=== PATIENT | male | born 1945 | race Caucasian/White ===

== ENCOUNTER → 2016-04-29 | Outpatient (CLI) | payer OTHER | END | disposition home or self-care (01) | LOC: NUC 09:53 | DX: I42.8 Other cardiomyopathies (principal); I25.2 Old myocardial infarction; I10 Essential (primary) hypertension; E11.9 Type 2 diabetes mellitus without complications; F17.200 Nicotine dependence, unspecified, uncomplicated; Z95.5 Presence of coronary angioplasty implant and graft | CPT/HCPCS: 78472; A9512; A9560 ==

== ENCOUNTER → 2017-05-05 | Outpatient (CLI) | payer OTHER | END | disposition home or self-care (01) | LOC: NUC 10:54 | DX: Z01.810 Encounter for preprocedural cardiovascular examination (principal); I25.5 Ischemic cardiomyopathy; I49.9 Cardiac arrhythmia, unspecified; I25.2 Old myocardial infarction; Z87.891 Personal history of nicotine dependence; Z95.1 Presence of aortocoronary bypass graft | CPT/HCPCS: 78472; A9512; A9560 ==

== ENCOUNTER 2017-06-28 22:12 | Inpatient (IN) | payer OTHER ==
[~2017-06-28] VITALS: Ht 177.8 cm; Wt 143.0 kg
[2017-06-28 23:02] LABS: HEMATOCRIT 40.1 % (38.0-50.0); HEMOGLOBIN 13.4 G/DL (12.5-16.6); MCH 28.5 PG (29.0-34.0); MCHC 33.4 G/DL (30.0-36.0); MCV 85.3 FL (86-99); PLATELET COUNT 189 K/uL (156-360); RBC DIS.WIDTH-CV 12.5 % (11.8-14.6); RBC DIS.WIDTH-SD 38.7 % (39-53); WHITE BLOOD COUNT 16.3 K/uL (4.1-10.2)
[2017-06-28 23:12] LABS: ALBUMIN 3.3 g/dL (3.2-4.8); CHLORIDE 110 mEq/L (99-109); SODIUM 140 mEq/L (136-147)
[2017-06-28 23:14] LABS: GLUCOSE 161 mg/dL (70-99)
[2017-06-28 23:15] LABS: TOTAL PROTEIN 6.7 g/dL (6.4-8.3)
[2017-06-28 23:16] LABS: TOTAL BILIRUBIN 0.6 mg/dL (0.0-1.0)
[2017-06-28 23:18] LABS: ALKALINE PHOSPHATASE 84 IU/L (3-129); CREATININE 1.1 mg/dL (0.6-1.3); GFR ESTIMATE (CALCULATED) > 59 mL/min/ (58.99-99999)
[2017-06-28 23:19] LABS: UREA NITROGEN (BUN) 17 mg/dL (9-23)
[2017-06-28 23:20] LABS: AST (GOT) 22 IU/L (2-34)
[2017-06-28 23:21] LABS: ALT (GPT) 23 IU/L (3-49)
[2017-06-28 23:22] LABS: LIPASE 3 U/L (1.0-51.0)
[2017-06-28 23:24] LABS: TROP-I INTERPRETATION NEGATIVE
[2017-06-29] MEDS ORDERED: ENTRESTO 97 MG1 EACH PO (00:47)
[2017-06-29] MEDS ORDERED: FUROSEMIDE40 MG PO (00:50)
[2017-06-29] MEDS ORDERED: LOSARTAN POTASS25 MG PO (00:50)
[2017-06-29] MEDS ORDERED: CEPHALEXIN250 MG PO (00:51)
[2017-06-29] MEDS ORDERED: METFORMIN HCL500 MG PO (00:55)
[2017-06-29] MEDS ORDERED: APRESOLINE50 MG PO (00:56)
[2017-06-29] MEDS ORDERED: OXAYDO5 MG PO (01:01)
[2017-06-29] MEDS ORDERED: LO-DOSE ASPIRIN81 M2 PO (01:02)
[2017-06-29] MEDS ORDERED: ATORVASTATIN CA40 MG PO (01:03)
[2017-06-29] MEDS ORDERED: CARVEDILOL25 MG PO (01:04)
[2017-06-29] MEDS ORDERED: TYLENOL REGULA325 MG PO (01:05)
[2017-06-29] MEDS ORDERED: FLONASE16 G1 BOTH NARES (01:06)
[2017-06-29] MEDS ORDERED: HUMALOG MI100 UNIT/6 SC (01:12)
[2017-06-29 01:20] LABS: CARBON DIOXIDE (BICARBONATE) 18.5 MEQ/L (20-31)
[2017-06-29 01:51] LABS: INTER. NORMALIZED RATIO ND; PTT ND SEC (25-37)
[2017-06-29 02:42] VITALS: BP 139/66
[2017-06-29 03:51] LABS: APPEARANCE CLEAR ((CLEAR)); BILIRUBIN NEGATIVE; BLOOD MODERATE; COLOR YELLOW ((YELLOW)); GLUCOSE (STRIP) NEGATIVE; KETONES 20; LEUKOCYTES NEGATIVE; NITRITE NEGATIVE; PROTEIN (STRIP) NEGATIVE; SPECIFIC GRAVITY 1.008 (1.000-1.030); UROBILINOGEN 0.2 MG/DL (0.2-1.0)
[2017-06-29 03:57] LABS: BACTERIA RARE /HPF; EPITHELIAL CELLS RARE /HPF; MUCUS TRACE /LPF; RED BLOOD CELLS 0-5 /HPF (0-5); UCUL ADDED? NO; WHITE BLOOD CELLS 0-5 /HPF (0-5)
[2017-06-29 08:12] VITALS: BP 143/61
[2017-06-29 09:17] LABS: CHLORIDE 108 MEQ/L (99-109); GFR ESTIMATE (CALCULATED) > 59 mL/min/ (58.99-99999); GLUCOSE 144 mg/dL (70-99); MAGNESIUM 1.4 mg/dl (1.3-2.7); POTASSIUM 3.5 MEQ/L (3.7-5.4); SODIUM 140 MEQ/L (136-147); UREA NITROGEN (BUN) 18 mg/dL (9-23)
[2017-06-29 09:49] LABS: BASOPHIL (%) 0.3 % (0-1); EOSINOPHIL (%) 0.4 % (0-5); EOSINOPHIL COUNT 0.1 K/uL (0-0.3); HEMATOCRIT 37.9 % (38.0-50.0); HEMOGLOBIN 12.3 G/DL (12.5-16.6); IMMATURE GRANULOCYTE (%) 0.7 % (0.0-0.7); LYMPHOCYTE (%) 7.5 % (15-42); LYMPHOCYTE COUNT 1.2 K/uL (1.0-2.8); MCH 27.8 PG (29.0-34.0); MCHC 32.5 G/DL (30.0-36.0); MCV 85.7 FL (86-99); MONOCYTE (%) 6.6 % (3-12); NEUTROPHIL (%) 84.5 % (45-76); NEUTROPHIL COUNT 13.1 K/uL (1.8-6.4); PLATELET COUNT 179 K/uL (156-360); RBC DIS.WIDTH-CV 12.6 % (11.8-14.6); RBC DIS.WIDTH-SD 39.4 % (39-53); RED BLOOD COUNT 4.42 M/uL (4.00-5.50); WHITE BLOOD COUNT 15.5 K/uL (4.1-10.2)
[2017-06-29 12:41] VITALS: BP 153/78
[2017-06-29 13:32] LABS: C DIFF TOXIN NEGATIVE (NEGATIVE)
[2017-06-29 16:59] VITALS: BP 161/78
[2017-06-29 19:30] VITALS: BP 142/67
[2017-06-29 23:46] VITALS: BP 133/71
[2017-06-30 04:21] VITALS: BP 130/60
[2017-06-30 07:14] VITALS: BP 140/63
[2017-06-30 07:54] LABS: HEMATOCRIT 37.6 % (38.0-50.0); HEMOGLOBIN 12.3 G/DL (12.5-16.6); MCH 27.6 PG (29.0-34.0); MCHC 32.7 G/DL (30.0-36.0); MCV 84.5 FL (86-99); PLATELET COUNT 197 K/uL (156-360); RBC DIS.WIDTH-CV 12.7 % (11.8-14.6); RBC DIS.WIDTH-SD 38.8 % (39-53); RED BLOOD COUNT 4.45 M/uL (4.00-5.50); WHITE BLOOD COUNT 14.1 K/uL (4.1-10.2)
[2017-06-30 08:13] LABS: TROP-I INTERPRETATION NEGATIVE; TROPONIN-I 0.04 ng/mL (0.0-0.30)
[2017-06-30 08:31] LABS: CHLORIDE 111 MEQ/L (99-109); CREATININE 1.1 MG/DL (0.6-1.3); GFR ESTIMATE (CALCULATED) > 59 mL/min/ (58.99-99999); GLUCOSE 118 mg/dL (70-99); POTASSIUM 3.6 MEQ/L (3.7-5.4); SODIUM 142 MEQ/L (136-147); UREA NITROGEN (BUN) 22 mg/dL (9-23)
[2017-06-30 12:12] VITALS: BP 112/59
[2017-06-30 15:48] VITALS: BP 141/65
[2017-06-30 19:00] VITALS: BP 139/63
[2017-07-01 00:31] VITALS: BP 116/60
[2017-07-01 08:43] LABS: HEMATOCRIT 37.6 % (38.0-50.0); HEMOGLOBIN 12.6 G/DL (12.5-16.6); MCH 27.6 PG (29.0-34.0); MCHC 33.5 G/DL (30.0-36.0); MCV 82.3 FL (86-99); PLATELET COUNT 213 K/uL (156-360); RBC DIS.WIDTH-CV 12.5 % (11.8-14.6); RED BLOOD COUNT 4.57 M/uL (4.00-5.50); WHITE BLOOD COUNT 13.1 K/uL (4.1-10.2)
[2017-07-01 09:07] LABS: CHLORIDE 103 MEQ/L (99-109); CREATININE 1.2 MG/DL (0.6-1.3); GFR ESTIMATE (CALCULATED) > 59 mL/min/ (58.99-99999); GLUCOSE 176 mg/dL (70-99); MAGNESIUM 1.5 mg/dl (1.3-2.7); POTASSIUM 3.6 MEQ/L (3.7-5.4); SODIUM 136 MEQ/L (136-147); UREA NITROGEN (BUN) 23 mg/dL (9-23)
[2017-07-01 11:38] VITALS: BP 141/66
[2017-07-01 14:36] LABS: HEMOGLOBIN A1c (GLYCOHEMOGLOB) 7.4 % (Below 5.7)
[2017-07-01 16:34] VITALS: BP 133/63
[2017-07-01 18:44] LABS: TROP-I INTERPRETATION NEGATIVE; TROPONIN-I 0.02 ng/mL (0.0-0.30)
[2017-07-01 18:45] LABS: CHLORIDE 106 MEQ/L (99-109); CREATININE 1.2 MG/DL (0.6-1.3); GFR ESTIMATE (CALCULATED) > 59 mL/min/ (58.99-99999); GLUCOSE 225 mg/dL (70-99); POTASSIUM 3.8 MEQ/L (3.7-5.4); SODIUM 139 MEQ/L (136-147); UREA NITROGEN (BUN) 23 mg/dL (9-23)
[2017-07-01 20:30] VITALS: BP 137/62
[2017-07-01 23:14] VITALS: BP 115/58
[2017-07-02 00:50] LABS: TROP-I INTERPRETATION NEGATIVE; TROPONIN-I 0.03 ng/mL (0.0-0.30)
[2017-07-02 03:36] VITALS: BP 128/58
[2017-07-02 05:27] LABS: HEMATOCRIT 37.2 % (38.0-50.0); HEMOGLOBIN 12.4 G/DL (12.5-16.6); MCHC 33.3 G/DL (30.0-36.0); PLATELET COUNT 199 K/uL (156-360); RBC DIS.WIDTH-CV 12.9 % (11.8-14.6); RBC DIS.WIDTH-SD 39.8 % (39-53); RED BLOOD COUNT 4.43 M/uL (4.00-5.50); WHITE BLOOD COUNT 10.6 K/uL (4.1-10.2)
[2017-07-02 05:48] LABS: TROP-I INTERPRETATION NEGATIVE; TROPONIN-I 0.02 ng/mL (0.0-0.30)
[2017-07-02 05:56] LABS: ALBUMIN 2.6 G/DL (3.2-4.8); ALKALINE PHOSPHATASE 60 IU/L (3-129); ALT (GPT) 32 IU/L (3-49); AST (GOT) 17 IU/L (2-34); CHLORIDE 106 MEQ/L (99-109); CREATININE 1.2 MG/DL (0.6-1.3); GFR ESTIMATE (CALCULATED) > 59 mL/min/ (58.99-99999); GLUCOSE 170 mg/dL (70-99); SODIUM 141 MEQ/L (136-147); TOTAL BILIRUBIN 0.4 MG/DL (0.0-1.0); UREA NITROGEN (BUN) 23 mg/dL (9-23)
[2017-07-02 09:42] VITALS: BP 130/63
[2017-07-02 11:28] VITALS: BP 134/65
[2017-07-02 15:57] VITALS: BP 125/59
[2017-07-02 19:53] VITALS: BP 157/65
[2017-07-03 00:22] VITALS: BP 117/58
[2017-07-03 04:34] VITALS: BP 142/62
[2017-07-03 05:29] LABS: BASOPHIL (%) 0.5 % (0-1); BASOPHIL COUNT 0.1 K/uL (0-0.1); EOSINOPHIL (%) 3.3 % (0-5); EOSINOPHIL COUNT 0.4 K/uL (0-0.3); HEMATOCRIT 38.8 % (38.0-50.0); HEMOGLOBIN 12.6 G/DL (12.5-16.6); IMMATURE GRANULOCYTE (%) 1.1 % (0.0-0.7); LYMPHOCYTE (%) 16.8 % (15-42); LYMPHOCYTE COUNT 1.9 K/uL (1.0-2.8); MCH 27.2 PG (29.0-34.0); MCHC 32.5 G/DL (30.0-36.0); MCV 83.8 FL (86-99); MONOCYTE (%) 6.7 % (3-12); MONOCYTE COUNT 0.7 K/uL (0-0.8); NEUTROPHIL (%) 71.6 % (45-76); NEUTROPHIL COUNT 7.9 K/uL (1.8-6.4); PLATELET COUNT 227 K/uL (156-360); RBC DIS.WIDTH-CV 12.8 % (11.8-14.6); RBC DIS.WIDTH-SD 39.2 % (39-53); RED BLOOD COUNT 4.63 M/uL (4.00-5.50); WHITE BLOOD COUNT 11.1 K/uL (4.1-10.2)
[2017-07-03 05:54] LABS: ALBUMIN 2.6 G/DL (3.2-4.8); ALKALINE PHOSPHATASE 61 IU/L (3-129); ALT (GPT) 32 IU/L (3-49); AST (GOT) 19 IU/L (2-34); CHLORIDE 105 MEQ/L (99-109); CREATININE 1.3 MG/DL (0.6-1.3); GFR ESTIMATE (CALCULATED) 58 mL/min/ (58.99-99999); GLUCOSE 134 mg/dL (70-99); POTASSIUM 3.6 MEQ/L (3.7-5.4); SODIUM 141 MEQ/L (136-147); TOTAL BILIRUBIN 0.4 MG/DL (0.0-1.0); TOTAL PROTEIN 5.1 G/DL (6.4-8.3); UREA NITROGEN (BUN) 25 mg/dL (9-23)
[2017-07-03 06:51] LABS: C-REACTIVE PROTEIN 89.1 MG/L (0-10)
[2017-07-03 08:13] VITALS: BP 146/65
[2017-07-03 08:18] LABS: ERTH.SED.RATE 82 MM/HR (0-20)
[2017-07-03 11:17] VITALS: BP 157/72
[2017-07-03 20:00] VITALS: BP 138/65
[2017-07-03 23:50] VITALS: BP 94/53
[2017-07-04 04:30] VITALS: BP 126/59
[2017-07-04 05:49] LABS: BASOPHIL (%) 0.5 % (0-1); BASOPHIL COUNT 0.1 K/uL (0-0.1); EOSINOPHIL COUNT 0.4 K/uL (0-0.3); HEMATOCRIT 38.3 % (38.0-50.0); HEMOGLOBIN 12.4 G/DL (12.5-16.6); IMMATURE GRANULOCYTE (%) 0.9 % (0.0-0.7); LYMPHOCYTE (%) 15.4 % (15-42); LYMPHOCYTE COUNT 1.9 K/uL (1.0-2.8); MCH 27.1 PG (29.0-34.0); MCHC 32.4 G/DL (30.0-36.0); MCV 83.8 FL (86-99); MONOCYTE (%) 6.1 % (3-12); MONOCYTE COUNT 0.7 K/uL (0-0.8); NEUTROPHIL (%) 74.1 % (45-76); NEUTROPHIL COUNT 8.9 K/uL (1.8-6.4); PLATELET COUNT 233 K/uL (156-360); RBC DIS.WIDTH-CV 12.7 % (11.8-14.6); RBC DIS.WIDTH-SD 38.5 % (39-53); RED BLOOD COUNT 4.57 M/uL (4.00-5.50); WHITE BLOOD COUNT 12.1 K/uL (4.1-10.2)
[2017-07-04 06:20] LABS: CHLORIDE 105 MEQ/L (99-109); CREATININE 1.2 MG/DL (0.6-1.3); GFR ESTIMATE (CALCULATED) > 59 mL/min/ (58.99-99999); POTASSIUM 3.4 MEQ/L (3.7-5.4); SODIUM 142 MEQ/L (136-147); UREA NITROGEN (BUN) 23 mg/dL (9-23)
[2017-07-04 06:22] LABS: GLUCOSE 75 mg/dL (70-99)
[2017-07-04 08:02] VITALS: BP 127/67
[2017-07-04 11:17] VITALS: BP 129/80
[2017-07-04] MEDS ORDERED: VANCOMYCIN HCL1 GM IV ×3 (11:30→12:22)
[2017-07-04] MEDS ORDERED: CEFEPIME HCL2 GM IV ×3 (11:30→12:22)
[2017-07-04] MEDS ORDERED: CILOSTAZOL50 MG PO (12:14)
[2017-07-04] MEDS ORDERED: ONDANSETRON ODT4 MG PO (12:17)
[2017-07-04] MEDS ORDERED: NOVOLOG 10100 UNITS/ SC (12:18)
[2017-07-04] MEDS ORDERED: CARVEDILOL25 MG PO (12:18)
[2017-07-04] MEDS ORDERED: NOVOLOG MI100 UNIT/3 SC (12:18)
[2017-07-04] MEDS ORDERED: FLONASE16 G1 BOTH NARES (12:18)
[2017-07-04] MEDS ORDERED: ENTRESTO 97 MG1 EACH PO (12:18)
[2017-07-04] MEDS ORDERED: OXYCODONE HCL5 MG PO (12:18)
[2017-07-04] MEDS ORDERED: APRESOLINE50 MG PO (12:18)
[2017-07-04] MEDS ORDERED: METFORMIN HCL500 MG PO (12:18)
[2017-07-04] MEDS ORDERED: FUROSEMIDE40 MG PO (12:18)
[2017-07-04] MEDS ORDERED: ATORVASTATIN CA40 MG PO (12:18)
[2017-07-04] MEDS ORDERED: ASPIR-LOW81 MG PO (12:18)
[2017-07-04 15:26] VITALS: BP 131/71
== END 2017-07-04 20:30 | DRG 239 ==
LOC: EME 22:12 → 5WEST 06-29 00:54 → EDOF 06-29 00:54 → ENRESERV 06-29 00:58 → 5WEST 06-29 02:07
PROVIDERS: Emergency Medicine; Hospitalist; Internal Medicine; Internal Medicine Cardiovascular Disease; Nurse Practitioner Adult Health; Physician Assistant Medical
DX: E11.52 Type 2 diabetes mellitus with diabetic peripheral angiopathy with gangrene (principal); I50.23 Acute on chronic systolic (congestive) heart failure; I11.0 Hypertensive heart disease with heart failure; E11.628 Type 2 diabetes mellitus with other skin complications; L03.115 Cellulitis of right lower limb; E11.69 Type 2 diabetes mellitus with other specified complication; M86.9 Osteomyelitis, unspecified; B96.89 Other specified bacterial agents as the cause of diseases classified elsewhere; E11.42 Type 2 diabetes mellitus with diabetic polyneuropathy; E11.65 Type 2 diabetes mellitus with hyperglycemia; I25.5 Ischemic cardiomyopathy; J44.9 Chronic obstructive pulmonary disease, unspecified; E87.6 Hypokalemia; I25.10 Atherosclerotic heart disease of native coronary artery without angina pectoris; E78.5 Hyperlipidemia, unspecified; F17.290 Nicotine dependence, other tobacco product, uncomplicated; Z96.642 Presence of left artificial hip joint; E66.01 Morbid (severe) obesity due to excess calories; Z68.41 Body mass index [BMI] 40.0-44.9, adult; Z91.14 Patient's other noncompliance with medication regimen; I25.2 Old myocardial infarction; Z95.1 Presence of aortocoronary bypass graft; Z95.2 Presence of prosthetic heart valve; Z79.4 Long term (current) use of insulin; Z79.82 Long term (current) use of aspirin; Z87.442 Personal history of urinary calculi
CPT/HCPCS: 71045; 80048; 80048 91; 80053; 80202; 81003; 82803; 82948; 83036; 83605; 83690; 83735; 83880; 84484; 85025; 85027; 85610; 85652; 85730; 86140; 87040; 87493; 87502; 88305; 93005; 93925; 94640; 94799; 97530 GO; 97530 GP; 99281; 99285; G0378; G8978 GP CM; G8979 GP CK; G8987 GO CM; G8988 GO CL; J0330; J0692; J1650; J1815; J1940; J2405; J3010; J3370; J3475; S0020

== ENCOUNTER 2017-07-23 18:45 | Inpatient (IN) | payer OTHER ==
[~2017-07-23] VITALS: Ht 180.3 cm; Wt 111.7 kg
[~2017-07-23 18:45] MED LIST: APRESOLINE50 MG PO; ASPIR-LOW81 MG PO; ATORVASTATIN CA40 MG PO; CARVEDILOL25 MG PO; CEFEPIME HCL2 GM IV; CEPHALEXIN250 MG PO; CILOSTAZOL50 MG PO; ENTRESTO 97 MG1 EACH PO; FLONASE16 G1 BOTH NARES; FUROSEMIDE40 MG PO; HUMALOG MI100 UNIT/6 SC; LO-DOSE ASPIRIN81 M2 PO; LOSARTAN POTASS25 MG PO; METFORMIN HCL500 MG PO; NOVOLOG 10100 UNITS/ SC; NOVOLOG MI100 UNIT/3 SC; ONDANSETRON ODT4 MG PO; OXAYDO5 MG PO; OXYCODONE HCL5 MG PO; TYLENOL REGULA325 MG PO; VANCOMYCIN HCL1 GM IV
[2017-07-23 19:47] LABS: BASOPHIL (%) 0.6 % (0-1); EOSINOPHIL (%) 2.7 % (0-5); EOSINOPHIL COUNT 0.1 K/uL (0-0.3); HEMATOCRIT 40.8 % (38.0-50.0); HEMOGLOBIN 13.7 G/DL (12.5-16.6); IMMATURE GRANULOCYTE (%) 0.8 % (0.0-0.7); LYMPHOCYTE (%) 21.7 % (15-42); LYMPHOCYTE COUNT 1.1 K/uL (1.0-2.8); MCH 27.7 PG (29.0-34.0); MCHC 33.6 G/DL (30.0-36.0); MCV 82.6 FL (86-99); MONOCYTE COUNT 0.5 K/uL (0-0.8); NEUTROPHIL (%) 64.2 % (45-76); NEUTROPHIL COUNT 3.3 K/uL (1.8-6.4); RBC DIS.WIDTH-CV 12.9 % (11.8-14.6); RBC DIS.WIDTH-SD 38.4 % (39-53); RED BLOOD COUNT 4.94 M/uL (4.00-5.50); WHITE BLOOD COUNT 5.1 K/uL (4.1-10.2)
[2017-07-23 19:50] LABS: INTER. NORMALIZED RATIO 1.3
[2017-07-23 19:52] LABS: PTT 30.4 SEC (25-37)
[2017-07-23 19:54] LABS: CHLORIDE 108 mEq/L (99-109); POTASSIUM 4.2 mEq/L (3.7-5.4); SODIUM 148 mEq/L (136-147)
[2017-07-23 19:56] LABS: GLUCOSE 118 mg/dL (70-99)
[2017-07-23 20:00] LABS: CREATININE 2.9 mg/dL (0.6-1.3); GFR ESTIMATE (CALCULATED) 23 mL/min/ (58.99-99999)
[2017-07-23 20:01] LABS: UREA NITROGEN (BUN) 60 mg/dL (9-23)
[2017-07-23 20:05] LABS: TROP-I INTERPRETATION NEGATIVE; TROPONIN-I 0.06 ng/mL (0.0-0.30)
[2017-07-23 20:13] LABS: APPEARANCE CLOUDY ((CLEAR)); BILIRUBIN NEGATIVE; BLOOD LARGE; COLOR YELLOW ((YELLOW)); GLUCOSE (STRIP) NEGATIVE; KETONES 20; LEUKOCYTES NEGATIVE; NITRITE NEGATIVE; PROTEIN (STRIP) 100; SPECIFIC GRAVITY 1.013 (1.000-1.030); UROBILINOGEN 0.2 MG/DL (0.2-1.0)
[2017-07-23 20:19] LABS: BACTERIA RARE /HPF; EPITHELIAL CELLS NONE SEEN /HPF; MUCUS TRACE /LPF; RED BLOOD CELLS 0-5 /HPF (0-5); UCUL ADDED? YES
[2017-07-23 20:29] LABS: HEMATOLOGY COMMENT 1 SN; PLAT.SUFFICIENCY DECREASED; PLATELET COUNT 131 K/uL (156-360)
[2017-07-23] MEDS ORDERED: ZOFRAN4 MG PO (21:54)
[2017-07-23] MEDS ORDERED: LEXAPRO10 MG PO (21:56)
[2017-07-23] MEDS ORDERED: ROXICODONE5 MG PO (21:56)
[2017-07-23] MEDS ORDERED: FLORASTOR250 MG PO (21:57)
[2017-07-23] MEDS ORDERED: K-DUR20 MEQ PO (22:01)
[2017-07-23] MEDS ORDERED: CILOSTAZOL50 MG PO (22:03)
[2017-07-23] MEDS ORDERED: NOVOLOG MI100 UNIT/3 SC (22:03)
[2017-07-23] MEDS ORDERED: ATORVASTATIN CA40 MG PO (22:04)
[2017-07-23] MEDS ORDERED: APRESOLINE50 MG PO (22:05)
[2017-07-23] MEDS ORDERED: COREG25 M1 PO (22:05)
[2017-07-23] MEDS ORDERED: LASIX40 MG PO (22:06)
[2017-07-23] MEDS ORDERED: ENTRESTO 97 MG1 EACH PO (22:06)
[2017-07-23] MEDS ORDERED: ASPIR 8181 M1 PO (22:06)
[2017-07-23] MEDS ORDERED: GLUCOPHAGE500 MG PO (22:07)
[2017-07-23] MEDS ORDERED: FLONASE16 G1 BOTH NARES (22:07)
[2017-07-23] MEDS ORDERED: MAXIPIME2 GM IM (22:11)
[2017-07-23] MEDS ORDERED: CHEST CONGESTI400 MG PO (22:12)
[2017-07-23] MEDS ORDERED: BIOFREEZE TP (22:16)
[2017-07-23] MEDS ORDERED: VANCOMYCIN750 MG/151 IV (22:29)
[2017-07-23 23:09] VITALS: BP 140/68
[2017-07-24] VITALS (7 sets, daily range): BP systolic 106–167; BP diastolic 56–78
[2017-07-24 07:07] LABS: ALBUMIN 3.1 G/DL (3.2-4.8); ALKALINE PHOSPHATASE 68 IU/L (3-129); ALT (GPT) 26 IU/L (3-49); AST (GOT) 21 IU/L (2-34); CHLORIDE 109 MEQ/L (99-109); CREATININE 2.6 MG/DL (0.6-1.3); GFR ESTIMATE (CALCULATED) 26 mL/min/ (58.99-99999); GLUCOSE 100 mg/dL (70-99); POTASSIUM 3.8 MEQ/L (3.7-5.4); SODIUM 145 MEQ/L (136-147); TOTAL BILIRUBIN 0.6 MG/DL (0.0-1.0); TOTAL PROTEIN 5.4 G/DL (6.4-8.3); UREA NITROGEN (BUN) 50 mg/dL (9-23); VANCOMYCIN, TROUGH 16.7 MCG/ML (10-20)
[2017-07-25 04:26] VITALS: BP 135/64
[2017-07-25 06:20] LABS: HEMATOCRIT 35.8 % (38.0-50.0); MCH 26.7 PG (29.0-34.0); MCHC 32.1 G/DL (30.0-36.0); MCV 83.1 FL (86-99); PLATELET COUNT 116 K/uL (156-360); RBC DIS.WIDTH-CV 13.1 % (11.8-14.6); RBC DIS.WIDTH-SD 39.4 % (39-53); RED BLOOD COUNT 4.31 M/uL (4.00-5.50); WHITE BLOOD COUNT 5.4 K/uL (4.1-10.2)
[2017-07-25 06:21] LABS: HEMOGLOBIN 11.5 G/DL (12.5-16.6)
[2017-07-25 06:39] LABS: ALBUMIN 3.2 G/DL (3.2-4.8); ALKALINE PHOSPHATASE 67 IU/L (3-129); ALT (GPT) 25 IU/L (3-49); AST (GOT) 19 IU/L (2-34); CHLORIDE 107 MEQ/L (99-109); CREATININE 2.5 MG/DL (0.6-1.3); GFR ESTIMATE (CALCULATED) 27 mL/min/ (58.99-99999); GLUCOSE 123 mg/dL (70-99); POTASSIUM 3.7 MEQ/L (3.7-5.4); SODIUM 142 MEQ/L (136-147); TOTAL PROTEIN 5.7 G/DL (6.4-8.3); UREA NITROGEN (BUN) 48 mg/dL (9-23)
[2017-07-25 06:41] LABS: TOTAL BILIRUBIN 0.8 MG/DL (0.0-1.0)
[2017-07-25 07:11] VITALS: BP 150/81
[2017-07-25 11:45] VITALS: BP 118/59
[2017-07-25 15:10] VITALS: BP 134/68
[2017-07-25 23:21] VITALS: BP 110/58
[2017-07-26 07:21] VITALS: BP 134/65
[2017-07-26 07:22] LABS: ALBUMIN 2.8 G/DL (3.2-4.8); ALKALINE PHOSPHATASE 58 IU/L (3-129); ALT (GPT) 19 IU/L (3-49); AST (GOT) 14 IU/L (2-34); CHLORIDE 105 MEQ/L (99-109); CREATININE 2.4 MG/DL (0.6-1.3); GFR ESTIMATE (CALCULATED) 29 mL/min/ (58.99-99999); POTASSIUM 3.1 MEQ/L (3.7-5.4); SODIUM 136 MEQ/L (136-147); UREA NITROGEN (BUN) 44 mg/dL (9-23)
[2017-07-26 07:32] LABS: GLUCOSE 92 mg/dL (70-99); TOTAL BILIRUBIN 0.6 MG/DL (0.0-1.0); TOTAL PROTEIN 4.6 G/DL (6.4-8.3)
[2017-07-26 23:16] VITALS: BP 109/59
[2017-07-27 07:29] VITALS: BP 116/56
[2017-07-27 08:13] LABS: ALBUMIN 2.9 G/DL (3.2-4.8); ALKALINE PHOSPHATASE 62 IU/L (3-129); ALT (GPT) 21 IU/L (3-49); AST (GOT) 15 IU/L (2-34); CHLORIDE 109 MEQ/L (99-109); CREATININE 2.6 MG/DL (0.6-1.3); GFR ESTIMATE (CALCULATED) 26 mL/min/ (58.99-99999); POTASSIUM 3.7 MEQ/L (3.7-5.4); SODIUM 140 MEQ/L (136-147); TOTAL BILIRUBIN 0.7 MG/DL (0.0-1.0); TOTAL PROTEIN 4.9 G/DL (6.4-8.3); UREA NITROGEN (BUN) 44 mg/dL (9-23)
[2017-07-27 08:16] LABS: GLUCOSE 117 mg/dL (70-99)
[2017-07-27 16:33] VITALS: BP 120/60
[2017-07-27 23:05] VITALS: BP 108/54
[2017-07-28 07:17] LABS: CHLORIDE 107 MEQ/L (99-109); CREATININE 2.6 MG/DL (0.6-1.3); GFR ESTIMATE (CALCULATED) 26 mL/min/ (58.99-99999); GLUCOSE 122 mg/dL (70-99); POTASSIUM 3.9 MEQ/L (3.7-5.4); SODIUM 140 MEQ/L (136-147); UREA NITROGEN (BUN) 49 mg/dL (9-23)
[2017-07-28 07:41] VITALS: BP 119/59
[2017-07-28 10:04] VITALS: BP 103/56
[2017-07-28 12:02] VITALS: BP 119/58
[2017-07-28 15:58] LABS: UR CREATININE CONCENTRATION 84.2 MG/DL
[2017-07-28 20:09] VITALS: BP 154/75
[2017-07-28 23:50] VITALS: BP 154/75
[2017-07-29 06:06] LABS: BASOPHIL (%) 0.6 % (0-1); EOSINOPHIL COUNT 0.3 K/uL (0-0.3); HEMATOCRIT 29.9 % (38.0-50.0); HEMOGLOBIN 9.9 G/DL (12.5-16.6); IMMATURE GRANULOCYTE (%) 0.6 % (0.0-0.7); LYMPHOCYTE (%) 25.5 % (15-42); LYMPHOCYTE COUNT 1.2 K/uL (1.0-2.8); MCH 27.3 PG (29.0-34.0); MCHC 33.1 G/DL (30.0-36.0); MCV 82.6 FL (86-99); MONOCYTE (%) 8.7 % (3-12); MONOCYTE COUNT 0.4 K/uL (0-0.8); NEUTROPHIL (%) 58.6 % (45-76); NEUTROPHIL COUNT 2.8 K/uL (1.8-6.4); PLATELET COUNT 88 K/uL (156-360); RBC DIS.WIDTH-CV 13.6 % (11.8-14.6); RBC DIS.WIDTH-SD 40.6 % (39-53); RED BLOOD COUNT 3.62 M/uL (4.00-5.50); WHITE BLOOD COUNT 4.8 K/uL (4.1-10.2)
[2017-07-29 06:29] LABS: ALBUMIN 2.8 G/DL (3.2-4.8); ALKALINE PHOSPHATASE 62 IU/L (3-129); ALT (GPT) 18 IU/L (3-49); AST (GOT) 12 IU/L (2-34); CHLORIDE 107 MEQ/L (99-109); CREATINE KINASE 38 IU/L (1-294); CREATININE 2.4 MG/DL (0.6-1.3); GFR ESTIMATE (CALCULATED) 29 mL/min/ (58.99-99999); GLUCOSE 103 mg/dL (70-99); MAGNESIUM 1.2 mg/dl (1.3-2.7); PHOSPHORUS 2.1 mg/dL (2.5-4.9); POTASSIUM 3.5 MEQ/L (3.7-5.4); SODIUM 137 MEQ/L (136-147); TOTAL BILIRUBIN 0.6 MG/DL (0.0-1.0); TOTAL CK 38 IU/L (1-294); TOTAL PROTEIN 4.7 G/DL (6.4-8.3); UREA NITROGEN (BUN) 54 mg/dL (9-23)
[2017-07-29 07:01] VITALS: BP 133/60
[2017-07-29 07:42] VITALS: BP 116/58
[2017-07-29 08:11] LABS: CK-MB 1.8 ng/mL (0.0-4.9)
[2017-07-29 08:13] LABS: CKMB RELATIVE INDEX 4.7 (0.0-3.9)
[2017-07-29 11:06] VITALS: BP 122/54
[2017-07-29 15:27] VITALS: BP 117/57
[2017-07-29 23:00] VITALS: BP 125/60
[2017-07-30 06:30] LABS: BASOPHIL (%) 0.6 % (0-1); EOSINOPHIL (%) 5.1 % (0-5); EOSINOPHIL COUNT 0.3 K/uL (0-0.3); HEMATOCRIT 30.7 % (38.0-50.0); HEMOGLOBIN 10.3 G/DL (12.5-16.6); IMMATURE GRANULOCYTE (%) 0.4 % (0.0-0.7); LYMPHOCYTE (%) 24.5 % (15-42); LYMPHOCYTE COUNT 1.3 K/uL (1.0-2.8); MCH 28.1 PG (29.0-34.0); MCHC 33.6 G/DL (30.0-36.0); MCV 83.9 FL (86-99); MONOCYTE (%) 7.6 % (3-12); MONOCYTE COUNT 0.4 K/uL (0-0.8); NEUTROPHIL (%) 61.8 % (45-76); NEUTROPHIL COUNT 3.2 K/uL (1.8-6.4); PLATELET COUNT 93 K/uL (156-360); RBC DIS.WIDTH-CV 14.1 % (11.8-14.6); RBC DIS.WIDTH-SD 42.4 % (39-53); RED BLOOD COUNT 3.66 M/uL (4.00-5.50); WHITE BLOOD COUNT 5.1 K/uL (4.1-10.2)
[2017-07-30 07:00] VITALS: BP 120/64
[2017-07-30 07:51] LABS: ALBUMIN 2.9 G/DL (3.2-4.8); ALKALINE PHOSPHATASE 67 IU/L (3-129); ALT (GPT) 19 IU/L (3-49); AST (GOT) 12 IU/L (2-34); CHLORIDE 109 MEQ/L (99-109); CREATININE 2.5 MG/DL (0.6-1.3); GFR ESTIMATE (CALCULATED) 27 mL/min/ (58.99-99999); GLUCOSE 109 mg/dL (70-99); SODIUM 140 MEQ/L (136-147); TOTAL BILIRUBIN 0.5 MG/DL (0.0-1.0); TOTAL PROTEIN 4.9 G/DL (6.4-8.3); UREA NITROGEN (BUN) 53 mg/dL (9-23)
[2017-07-30 11:02] VITALS: BP 102/59
[2017-07-30 15:25] VITALS: BP 124/58
[2017-07-30 22:41] VITALS: BP 109/53
[2017-07-31 06:46] VITALS: BP 133/63
[2017-07-31 07:19] LABS: BASOPHIL (%) 0.6 % (0-1); EOSINOPHIL (%) 5.2 % (0-5); EOSINOPHIL COUNT 0.3 K/uL (0-0.3); HEMATOCRIT 31.3 % (38.0-50.0); HEMOGLOBIN 10.3 G/DL (12.5-16.6); IMMATURE GRANULOCYTE (%) 0.6 % (0.0-0.7); LYMPHOCYTE COUNT 1.3 K/uL (1.0-2.8); MCH 27.7 PG (29.0-34.0); MCHC 32.9 G/DL (30.0-36.0); MCV 84.1 FL (86-99); MONOCYTE (%) 8.7 % (3-12); MONOCYTE COUNT 0.5 K/uL (0-0.8); NEUTROPHIL (%) 59.9 % (45-76); NEUTROPHIL COUNT 3.1 K/uL (1.8-6.4); PLATELET COUNT 92 K/uL (156-360); RBC DIS.WIDTH-CV 14.3 % (11.8-14.6); RBC DIS.WIDTH-SD 43.4 % (39-53); RED BLOOD COUNT 3.72 M/uL (4.00-5.50); WHITE BLOOD COUNT 5.2 K/uL (4.1-10.2)
[2017-07-31 07:34] LABS: C-REACTIVE PROTEIN 11.7 MG/L (0-10); CHLORIDE 109 MEQ/L (99-109); CREATININE 2.7 MG/DL (0.6-1.3); GFR ESTIMATE (CALCULATED) 25 mL/min/ (58.99-99999); GLUCOSE 104 mg/dL (70-99); POTASSIUM 4.4 MEQ/L (3.7-5.4); SODIUM 140 MEQ/L (136-147); UREA NITROGEN (BUN) 62 mg/dL (9-23)
[2017-07-31 11:23] LABS: ERTH.SED.RATE 31 MM/HR (0-20)
[2017-07-31 14:42] VITALS: BP 115/55
[2017-07-31 22:51] VITALS: BP 116/55
[2017-08-01 06:01] LABS: BASOPHIL (%) 0.6 % (0-1); EOSINOPHIL (%) 5.4 % (0-5); EOSINOPHIL COUNT 0.3 K/uL (0-0.3); HEMATOCRIT 30.2 % (38.0-50.0); IMMATURE GRANULOCYTE (%) 0.4 % (0.0-0.7); LYMPHOCYTE (%) 28.2 % (15-42); LYMPHOCYTE COUNT 1.4 K/uL (1.0-2.8); MCH 27.9 PG (29.0-34.0); MCHC 33.1 G/DL (30.0-36.0); MCV 84.1 FL (86-99); MONOCYTE (%) 9.5 % (3-12); MONOCYTE COUNT 0.5 K/uL (0-0.8); NEUTROPHIL (%) 55.9 % (45-76); NEUTROPHIL COUNT 2.7 K/uL (1.8-6.4); PLATELET COUNT 90 K/uL (156-360); RBC DIS.WIDTH-CV 14.2 % (11.8-14.6); RBC DIS.WIDTH-SD 43.2 % (39-53); RED BLOOD COUNT 3.59 M/uL (4.00-5.50); WHITE BLOOD COUNT 4.9 K/uL (4.1-10.2)
[2017-08-01 06:20] LABS: CHLORIDE 109 MEQ/L (99-109); CREATININE 2.7 MG/DL (0.6-1.3); GFR ESTIMATE (CALCULATED) 25 mL/min/ (58.99-99999); GLUCOSE 112 mg/dL (70-99); POTASSIUM 4.3 MEQ/L (3.7-5.4); SODIUM 140 MEQ/L (136-147); UREA NITROGEN (BUN) 67 mg/dL (9-23)
[2017-08-01 06:49] VITALS: BP 125/58
[2017-08-01] MEDS ORDERED: CEFEPIME HCL2 GM IV (13:35)
[2017-08-01] MEDS ORDERED: CARVEDILOL25 MG PO (13:36)
[2017-08-01] MEDS ORDERED: LEVEMIR100 UNIT/2 SC (13:37)
[2017-08-01] MEDS ORDERED: NOVOLOG 10100 UNITS/ SC (13:38)
== END 2017-08-01 15:23 | DRG 682 ==
LOC: EME 18:45 → 5EAST 21:40 → EDOF 21:40 → ENRESERV 22:01 → 5EAST 22:51
PROVIDERS: Emergency Medicine; Family Medicine; Internal Medicine; Internal Medicine Infectious Disease; Internal Medicine Nephrology
DX: N17.9 Acute kidney failure, unspecified (principal); I50.23 Acute on chronic systolic (congestive) heart failure; I13.0 Hypertensive heart and chronic kidney disease with heart failure and stage 1 through stage 4 chronic kidney disease, or unspecified chronic kidney disease; L89.622 Pressure ulcer of left heel, stage 2; E86.0 Dehydration; I25.5 Ischemic cardiomyopathy; N18.3 Chronic kidney disease, stage 3 (moderate); E78.5 Hyperlipidemia, unspecified; E11.52 Type 2 diabetes mellitus with diabetic peripheral angiopathy with gangrene; E11.40 Type 2 diabetes mellitus with diabetic neuropathy, unspecified; E11.22 Type 2 diabetes mellitus with diabetic chronic kidney disease; I25.2 Old myocardial infarction; Z96.642 Presence of left artificial hip joint; Z95.2 Presence of prosthetic heart valve; Z95.1 Presence of aortocoronary bypass graft; F43.21 Adjustment disorder with depressed mood; Z89.421 Acquired absence of other right toe(s); I25.10 Atherosclerotic heart disease of native coronary artery without angina pectoris; E66.9 Obesity, unspecified; E11.69 Type 2 diabetes mellitus with other specified complication; M86.9 Osteomyelitis, unspecified; Z68.34 Body mass index [BMI] 34.0-34.9, adult; D63.8 Anemia in other chronic diseases classified elsewhere; T36.8X5A Adverse effect of other systemic antibiotics, initial encounter; Z87.891 Personal history of nicotine dependence
CPT/HCPCS: 70450; 71045; 76770; 80048; 80053; 80202; 81003; 82550; 82553; 82570; 82948; 83735; 84100; 84156; 84484; 85025; 85027; 85610; 85651; 85652; 85730; 86140; 87040; 87070; 87075; 87086; 87205; 93005; 99281; 99285; A6260; J0692; J1644; J1815; J3370; J7030; J7050

== ENCOUNTER 2017-09-06 18:51 | Inpatient (IN) | payer OTHER ==
[~2017-09-06] VITALS: Ht 180.3 cm; Wt 120.0 kg
[~2017-09-06 18:51] MED LIST changes: +ASPIR 8181 M1 PO; +BIOFREEZE TP; +CHEST CONGESTI400 MG PO; +COREG25 M1 PO; +FLORASTOR250 MG PO; +GLUCOPHAGE500 MG PO; +K-DUR20 MEQ PO; +LASIX40 MG PO; +LEVEMIR100 UNIT/2 SC; +LEXAPRO10 MG PO; +MAXIPIME2 GM IM; +ROXICODONE5 MG PO; +VANCOMYCIN750 MG/151 IV; +ZOFRAN4 MG PO
[2017-09-06 19:38] LABS: HEMATOCRIT 35.5 % (38.0-50.0); MCH 28.8 PG (29.0-34.0); MCHC 33.8 G/DL (30.0-36.0); MCV 85.3 FL (86-99); PLATELET COUNT 181 K/uL (156-360); RBC DIS.WIDTH-CV 13.8 % (11.8-14.6); RBC DIS.WIDTH-SD 42.8 % (39-53); RED BLOOD COUNT 4.16 M/uL (4.00-5.50); WHITE BLOOD COUNT 6.3 K/uL (4.1-10.2)
[2017-09-06 19:54] LABS: ALBUMIN 3.9 g/dL (3.2-4.8); CHLORIDE 103 mEq/L (99-109); POTASSIUM 4.7 mEq/L (3.7-5.4); SODIUM 142 mEq/L (136-147)
[2017-09-06 19:57] LABS: GLUCOSE 95 mg/dL (70-99); TOTAL PROTEIN 6.8 g/dL (6.4-8.3)
[2017-09-06 19:59] LABS: TOTAL BILIRUBIN 0.7 mg/dL (0.0-1.0)
[2017-09-06 20:00] LABS: ALKALINE PHOSPHATASE 104 IU/L (3-129); CREATININE 1.4 mg/dL (0.6-1.3); GFR ESTIMATE (CALCULATED) 53 mL/min/ (58.99-99999)
[2017-09-06 20:01] LABS: UREA NITROGEN (BUN) 27 mg/dL (9-23)
[2017-09-06 20:02] LABS: AST (GOT) 12 IU/L (2-34)
[2017-09-06 20:03] LABS: ALT (GPT) 14 IU/L (3-49)
[2017-09-06] MEDS ORDERED: HUMALOG MI100 UNIT/6 SC (22:28)
[2017-09-06] MEDS ORDERED: GLUCOPHAGE500 MG PO (22:28)
[2017-09-07] VITALS (7 sets, daily range): BP systolic 103–160; BP diastolic 56–81
[2017-09-07] MEDS ORDERED: K-DUR10 MEQ PO (15:56)
[2017-09-07] MEDS ORDERED: FEOSOL325 MG PO (15:56)
[2017-09-07] MEDS ORDERED: ZESTRIL10 MG PO (15:57)
[2017-09-07] MEDS ORDERED: DIPHENHIST25 M3 PO (15:57)
[2017-09-07] MEDS ORDERED: HUMALOG MI100 UNIT/6 SC (15:59)
[2017-09-08 03:42] VITALS: BP 118/61
[2017-09-08 06:02] LABS: BASOPHIL (%) 0.3 % (0-1); EOSINOPHIL (%) 4.3 % (0-5); EOSINOPHIL COUNT 0.3 K/uL (0-0.3); HEMOGLOBIN 10.5 G/DL (12.5-16.6); IMMATURE GRANULOCYTE (%) 0.5 % (0.0-0.7); LYMPHOCYTE (%) 30.8 % (15-42); LYMPHOCYTE COUNT 1.9 K/uL (1.0-2.8); MCH 27.8 PG (29.0-34.0); MCHC 32.8 G/DL (30.0-36.0); MCV 84.7 FL (86-99); MONOCYTE (%) 7.7 % (3-12); MONOCYTE COUNT 0.5 K/uL (0-0.8); NEUTROPHIL (%) 56.4 % (45-76); NEUTROPHIL COUNT 3.5 K/uL (1.8-6.4); PLATELET COUNT 156 K/uL (156-360); RBC DIS.WIDTH-CV 13.5 % (11.8-14.6); RBC DIS.WIDTH-SD 42.5 % (39-53); RED BLOOD COUNT 3.78 M/uL (4.00-5.50); WHITE BLOOD COUNT 6.2 K/uL (4.1-10.2)
[2017-09-08 06:26] LABS: CHLORIDE 104 MEQ/L (99-109); CREATININE 1.5 MG/DL (0.6-1.3); GFR ESTIMATE (CALCULATED) 49 mL/min/ (58.99-99999); GLUCOSE 101 mg/dL (70-99); POTASSIUM 4.4 MEQ/L (3.7-5.4); SODIUM 141 MEQ/L (136-147); UREA NITROGEN (BUN) 28 mg/dL (9-23)
[2017-09-08 07:43] VITALS: BP 133/63
[2017-09-08] MEDS ORDERED: FUROSEMIDE20 MG PO (11:03)
[2017-09-08] MEDS ORDERED: DOXYCYCLINE HY100 MG PO (11:04)
[2017-09-08 11:44] VITALS: BP 118/56
== END 2017-09-08 18:02 | disposition home health service (06) | DRG 565 ==
LOC: EME 18:51 → 3EAST 22:33 → EDOF 22:33 → ENRESERV 22:38 → 3EAST 09-07 00:53
PROVIDERS: Hospitalist; Internal Medicine
DX: T87.43 Infection of amputation stump, right lower extremity (principal); L03.115 Cellulitis of right lower limb; Y83.5 Amputation of limb(s) as the cause of abnormal reaction of the patient, or of later complication, without mention of misadventure at the time of the procedure; F32.9 Major depressive disorder, single episode, unspecified; I13.0 Hypertensive heart and chronic kidney disease with heart failure and stage 1 through stage 4 chronic kidney disease, or unspecified chronic kidney disease; I50.22 Chronic systolic (congestive) heart failure; N18.3 Chronic kidney disease, stage 3 (moderate); E11.22 Type 2 diabetes mellitus with diabetic chronic kidney disease; E11.40 Type 2 diabetes mellitus with diabetic neuropathy, unspecified; L89.629 Pressure ulcer of left heel, unspecified stage; I25.10 Atherosclerotic heart disease of native coronary artery without angina pectoris; I25.5 Ischemic cardiomyopathy; E78.5 Hyperlipidemia, unspecified; D63.8 Anemia in other chronic diseases classified elsewhere; N40.1 Benign prostatic hyperplasia with lower urinary tract symptoms; R35.0 Frequency of micturition; F17.290 Nicotine dependence, other tobacco product, uncomplicated; Z96.642 Presence of left artificial hip joint; E66.01 Morbid (severe) obesity due to excess calories; Z68.36 Body mass index [BMI] 36.0-36.9, adult; I25.2 Old myocardial infarction; Z79.4 Long term (current) use of insulin; Z79.82 Long term (current) use of aspirin; Z89.421 Acquired absence of other right toe(s); Z95.1 Presence of aortocoronary bypass graft; Z95.2 Presence of prosthetic heart valve; Z87.442 Personal history of urinary calculi
CPT/HCPCS: 80048; 80053; 80202; 82948; 85025; 85027; 85651; 86140; 87070; 87075; 87077; 87147; 87186; 87205; 99281; 99284; J1650; J1815; J3370